=== PATIENT | male | born 1965 | race Caucasian/White ===

== ENCOUNTER 2017-05-07 18:58 | Emergency (ER) | payer MEDICARE, OTHER ==
[~2017-05-07] VITALS: Ht 177.8 cm; Wt 101.9 kg
[2017-05-07] MEDS ORDERED: ZIPRASIDONE 20 MG INJ IM ONE (19:10)
[2017-05-07] MEDS ORDERED: SODIUM CHLORIDE 0.9% 1,000 ML IV ONE (19:21)
[2017-05-07] MEDS ORDERED: SODIUM CHLORIDE FLUSH 10ML SYR IVF ONE (19:30)
[2017-05-07] MEDS ORDERED: ONDANSETRON 2MG/ML, 2ML IVPush ONE (19:30)
[2017-05-07] MEDS ORDERED: HYDROmorphone 1 MG/ML, 1ML IVPush PRN (19:30)
[2017-05-07 19:55] LABS: BASOPHILS # (AUTO) 0.01 x10^3/uL (0-0.1); BASOPHILS % (AUTO) 0 % (0-1); EOSINOPHILS % (AUTO) 1 % (1-7); LYMPHOCYTES % (AUTO) 13 % (22-44); MD NO; MEAN CORPUSCULAR HEMOGLOBIN 30.4 pg (27.5-34.5); MEAN CORPUSCULAR HGB CONC 33.8 g/dL (33.2-36.2); MEAN CORPUSCULAR VOLUME 89.9 fL (81-97); MONOCYTES # (AUTO) 0.76 x10^3/uL (0.2-0.8); MONOCYTES % (AUTO) 8 % (2-9); NEUTROPHILS % (AUTO) 78 % (42-75); PLATELET COUNT 179 x10^3/uL (130-400); RED BLOOD COUNT 5.56 x10^6/uL (4.38-5.82); RED CELL DISTRIBUTION WIDTH 13.2 % (9.4-14.8)
[2017-05-07 20:08] LABS: ALANINE AMINOTRANSFERASE 18 U/L (12-78); ALBUMIN 3.6 g/dL (3.4-5.0); ANION GAP 7 mmol/L (5-15); CALCIUM 8.6 mg/dL (8.5-10.1); CHLORIDE 109 mmol/L (98-107)
[2017-05-07 20:10] LABS: ALKALINE PHOSPHATASE 47 U/L (45-117); BILIRUBIN,TOTAL 0.9 mg/dL (0.2-1.0); TOTAL PROTEIN 7.3 g/dL (6.4-8.2)
[2017-05-07] MEDS ORDERED: ONDANSETRON 2MG/ML, 2ML ONE (21:35)
[2017-05-07] MEDS ORDERED: HYDROmorphone 2 MG/ML, 1ML ONE (21:40)
[2017-05-07 23:46] VITALS: BP 157/103
== END 2017-05-07 23:48 | disposition home or self-care (01) ==
LOC: ED 23:06
DX: K31.84 Gastroparesis (principal); I10 Essential (primary) hypertension; G43.909 Migraine, unspecified, not intractable, without status migrainosus; Z98.84 Bariatric surgery status
CPT/HCPCS: 36415; 74021; 80053; 83690; 85025; 96361; 96374; 99285; J1170; J2405; J7030

== ENCOUNTER 2019-04-30 10:36 | Emergency (ER) | payer MEDICARE, OTHER ==
[~2019-04-30] VITALS: Ht 177.8 cm; Wt 103.2 kg
--- NOTE | 2019-04-30 11:16 | NUR ---
PATIENT BROUGHT BACK FROM TRIAGE WITH CHIEF COMPLAINT OF MIDDLE ABDOMINAL PAIN WITH NAUSEA STARTING LAST NIGHT.
[2019-04-30] MEDS ORDERED: LISI5TAB7 PO (11:21)
[2019-04-30] MEDS ORDERED: ONDANSETRON 2MG/ML, 2ML IVPush ONE (11:30)
[2019-04-30] MEDS ORDERED: SODIUM CHLORIDE FLUSH 10ML SYR IVF ONE (11:30)
[2019-04-30] MEDS ORDERED: HYDROmorphone 2 MG/ML, 1ML IVPush ONE ×2 (11:30→13:30)
--- NOTE | 2019-04-30 11:30 | NUR ---
PT AWARE OF NEEDED URINE SAMPLE
[2019-04-30] MEDS ORDERED: HYDROmorphone 1 MG/ML, 1ML INJ ONE ×2 (11:37→13:11)
[2019-04-30] MEDS ORDERED: ONDANSETRON 2MG/ML, 2ML ONE (11:37)
[2019-04-30 11:44] LABS: BASOPHILS # (AUTO) 0.04 x10^3/uL (0-0.1); BASOPHILS % (AUTO) 1 % (0-1); EOSINOPHILS % (AUTO) 2 % (1-7); LYMPHOCYTES % (AUTO) 14 % (22-44); MD NO; MEAN CORPUSCULAR HEMOGLOBIN 29.9 pg (27.5-34.5); MEAN CORPUSCULAR HGB CONC 33.1 g/dL (33.2-36.2); MEAN CORPUSCULAR VOLUME 90.5 fL (81-97); MEAN PLATELET VOLUME 8.3 fL (7.4-10.4); MONOCYTES # (AUTO) 0.38 x10^3/uL (0.2-0.8); MONOCYTES % (AUTO) 7 % (2-9); NEUTROPHILS % (AUTO) 76 % (42-75); PLATELET COUNT 182 x10^3/uL (130-400); RED CELL DISTRIBUTION WIDTH 16.9 % (9.4-14.8)
[2019-04-30 11:56] LABS: ALANINE AMINOTRANSFERASE 33 U/L (12-78); ALBUMIN 3.5 g/dL (3.4-5.0); ANION GAP 7 mmol/L (5-15); CALCIUM 8.9 mg/dL (8.5-10.1); CHLORIDE 110 mmol/L (98-107); CREATININE 1.19 mg/dL (0.7-1.3)
[2019-04-30 11:59] LABS: ALKALINE PHOSPHATASE 72 U/L (45-117); BILIRUBIN,TOTAL 1.7 mg/dL (0.2-1.0); TOTAL PROTEIN 7.2 g/dL (6.4-8.2)
--- NOTE | 2019-04-30 12:15 | NUR ---
ERMD LAW AT BEDSIDE
--- NOTE | 2019-04-30 12:22 | NUR ---
PT TO IMAGING
[2019-04-30] MEDS ORDERED: OMNIPAQUE 350 MG/ML, 100ML BOTTLE ONE (12:31)
[2019-04-30 12:50] LABS: MICROSCOPIC AUTO
[2019-04-30 12:52] LABS: CULTURE INDICATED? NO
[2019-04-30 13:14] VITALS: BP 149/103
== END 2019-04-30 13:55 | disposition home or self-care (01) ==
LOC: ED 13:07
DX: R10.84 Generalized abdominal pain (principal); I10 Essential (primary) hypertension; Z90.49 Acquired absence of other specified parts of digestive tract; Z87.19 Personal history of other diseases of the digestive system
CPT/HCPCS: 36415; 74177; 80053; 81001; 83690; 85025; 96374; 96375; 96376; 99284; J1170; J2405; Q9967

== ENCOUNTER 2019-06-22 06:59 | Observation (INO) | payer MEDICARE, OTHER ==
[~2019-06-22] VITALS: Ht 177.8 cm; Wt 103.4 kg
[~2019-06-22 06:59] MED LIST: LISI5TAB7 PO
--- NOTE | 2019-06-22 07:46 | NUR ---
FIRST CONTACT WITH PT. PT STATES "MY LEFT LEG IS HURTING. I THINK THE MUSCLE FELL OFF MY STUMP." HX: SURGERY 11/2018. PT'S AOX4. RESPS EVEN AND UNLABORED. PT DENIES ANY OTHER SYMPTOMS. BP/SPO2 PLACED. CALL LIGHT WITHIN REACH. PT'S AT BEDSIDE.
[2019-06-22] MEDS ORDERED: KETAMINE 10 MG/ML, 20ML IV ONE (08:30)
--- NOTE | 2019-06-22 08:48 | NUR ---
PIV EST WITH NO COMPLICATIONS. PT TOLERATED WELL.
--- NOTE | 2019-06-22 08:55 | NUR ---
MEDICATION ORDERED FROM PHARMACY AT THIS TIME.
[2019-06-22] MEDS ORDERED: KETAMINE 10 MG/ML, 20ML ONE (09:02)
--- NOTE | 2019-06-22 09:07 | NUR ---
PT MEDICATED PER EMAR. PT TOLERATED WELL.
--- NOTE | 2019-06-22 09:21 | NUR ---
AFTER PT MEDICATED, PT'S BEHAVIOR WAS CHANGED. PT IS JUMPY AND SPEECH IS SLOW. EDMD NOTIFIED AND EDMD STATES "JUST MONITOR THE PT AND HE USES OPIOID A LOT." PT'S AOX4. VSS. AT BEDSIDE.
[2019-06-22 09:23] LABS: BASOPHILS # (AUTO) 0.02 x10^3/uL (0-0.1); BASOPHILS % (AUTO) 1 % (0-1); EOSINOPHILS # (AUTO) 0.17 x10^3/uL (0-0.4); EOSINOPHILS % (AUTO) 4 % (1-7); HCT (SEDRATE) 50.1 % (39.2-51.8); LYMPHOCYTES # (AUTO) 0.94 x10^3/uL (1-3.4); LYMPHOCYTES % (AUTO) 21 % (22-44); MD NO; MEAN CORPUSCULAR HEMOGLOBIN 30.3 pg (27.5-34.5); MEAN CORPUSCULAR HGB CONC 32.8 g/dL (33.2-36.2); MEAN CORPUSCULAR VOLUME 92.1 fL (81-97); MEAN PLATELET VOLUME 8.4 fL (7.4-10.4); MONOCYTES % (AUTO) 9 % (2-9); NEUTROPHILS % (AUTO) 66 % (42-75); PLATELET COUNT 199 x10^3/uL (130-400); RED BLOOD COUNT 5.45 x10^6/uL (4.38-5.82)
[2019-06-22] MEDS ORDERED: DIPHENHYDRAMINE 50 MG/ML, 1ML ONE (09:27)
[2019-06-22] MEDS ORDERED: DIPHENHYDRAMINE 50 MG/ML, 1ML IVPush ONE (09:30)
--- NOTE | 2019-06-22 09:30 | NUR ---
PT MEDICATED PER EMAR. PT TOLERATED WELL. PT'S AOX4. RESPS EVEN AND UNLABORED. PT STATES "I DON'T REMEMBER. WHAT DID I DO?" PT'S BEHAVIOR IS NORMAL. PT IS COOPERATIVE AND CALM.
[2019-06-22 09:33] LABS: ALANINE AMINOTRANSFERASE 28 U/L (12-78); ALBUMIN 3.2 g/dL (3.4-5.0); ANION GAP 4 mmol/L (5-15); CALCIUM 8.5 mg/dL (8.5-10.1); CHLORIDE 110 mmol/L (98-107); CREATININE 1.17 mg/dL (0.7-1.3)
[2019-06-22 09:35] LABS: ALKALINE PHOSPHATASE 76 U/L (45-117); BILIRUBIN,TOTAL 1.2 mg/dL (0.2-1.0); TOTAL PROTEIN 7.1 g/dL (6.4-8.2)
--- NOTE | 2019-06-22 10:47 | NUR ---
PT RESTING IN [facility]. RESPS EVEN AND UNLABORED. BP/SPO2 MONITORS IN PLACE. CALL LIGHT WITHIN REACH.
[2019-06-22] MEDS ORDERED: SUVO20TA PO (11:26)
[2019-06-22] MEDS ORDERED: DIVA-61 PO (11:27)
[2019-06-22] MEDS ORDERED: ATOR40TA78 PO (11:28)
[2019-06-22] MEDS ORDERED: TERB250T14 PO (11:28)
[2019-06-22] MEDS ORDERED: PANT40TA5 PO (11:29)
[2019-06-22] MEDS ORDERED: CABE0.5T PO (11:30)
[2019-06-22] MEDS ORDERED: GABAPENTIN 300 MG CAPSULE PO ONE (11:30)
[2019-06-22] MEDS ORDERED: HYDROmorphone 2 MG/ML, 1ML IVPush PRN (11:30)
[2019-06-22] MEDS ORDERED: VITAMIN D (11:32)
[2019-06-22] MEDS ORDERED: OXYC10TA6 PO (11:33)
[2019-06-22] MEDS ORDERED: GABA600T7 PO (11:34)
[2019-06-22] MEDS ORDERED: GABAPENTIN 300 MG CAPSULE ONE (12:09)
--- NOTE | 2019-06-22 12:15 | NUR ---
report given to jenise gibbs. all questions answered.
--- NOTE | 2019-06-22 12:18 | NUR ---
PT MEDICATED PER EMAR. PT TOLERATED WELL.
[2019-06-22] MEDS ORDERED: hydrALAzine 20 MG/ML, 1ML IVPush PRN (13:00)
[2019-06-22] MEDS ORDERED: ONDANSETRON 2MG/ML, 2ML IVPush PRN (13:00)
[2019-06-22] MEDS ORDERED: LABETALOL 5MG/ML, 20ML IVPush PRN (13:00)
--- NOTE | 2019-06-22 13:15 | NUR ---
pt resting in [facility]. pt's axo4. resps even and unlabored. all monitors in place. call light within reach.
[2019-06-22 14:03] VITALS: BP 170/104
[2019-06-22] MEDS: PANTOPROZOLE 40MG TABLET PO SCH (14:30)
[2019-06-22] MEDS: LISINOPRIL 20 MG TABLET PO SCH (14:30)
[2019-06-22] MEDS: ACETAMINOPHEN 325 MG TABLET PO SCH ×2 (14:30→22:46)
[2019-06-22] MEDS: CYCLOBENZAPRINE 10 MG TABLET PO SCH ×2 (14:31→22:48)
[2019-06-22] MEDS: SENNA/DOCUSATE TABLET PO SCH (14:31)
[2019-06-22] MEDS: KETOROLAC 30 MG/1 ML IV PRN (14:31)
[2019-06-22] MEDS: ENOXAPARIN 40 MG/0.4 ML SQ SCH (14:31)
[2019-06-22] MEDS: GABAPENTIN 100 MG CAPSULE PO SCH ×3 (14:36→21:11)
[2019-06-22] MEDS: DIVALPROEX 500 MG TABLET.DR PO SCH (14:36)
[2019-06-22] MEDS: SUVOREXANT 20 MG HOMEMEDPO SCH (14:36)
[2019-06-22] MEDS ORDERED: OMNIPAQUE 350 MG/ML, 100ML BOTTLE ONE (14:46)
[2019-06-22] MEDS: OXYcodone IR 5MG TABLET PO PRN ×2 (18:22→22:46)
[2019-06-22 19:11] VITALS: BP 162/94
[2019-06-22] MEDS: ATORVASTATIN 40 MG TABLET PO SCH (21:11)
[2019-06-23 00:32] VITALS: BP 156/88
[2019-06-23] MEDS: OXYcodone IR 5MG TABLET PO PRN ×4 (04:33→19:30)
[2019-06-23] MEDS: CYCLOBENZAPRINE 10 MG TABLET PO SCH ×2 (06:00→19:29)
[2019-06-23] MEDS: ACETAMINOPHEN 325 MG TABLET PO SCH ×3 (06:00→22:24)
[2019-06-23 06:12] LABS: BASOPHILS # (AUTO) 0.02 x10^3/uL (0-0.1); BASOPHILS % (AUTO) 1 % (0-1); EOSINOPHILS # (AUTO) 0.15 x10^3/uL (0-0.4); EOSINOPHILS % (AUTO) 4 % (1-7); LYMPHOCYTES # (AUTO) 1.11 x10^3/uL (1-3.4); LYMPHOCYTES % (AUTO) 29 % (22-44); MD NO; MEAN CORPUSCULAR HEMOGLOBIN 30.2 pg (27.5-34.5); MEAN CORPUSCULAR HGB CONC 33.3 g/dL (33.2-36.2); MEAN CORPUSCULAR VOLUME 90.8 fL (81-97); MONOCYTES # (AUTO) 0.37 x10^3/uL (0.2-0.8); MONOCYTES % (AUTO) 10 % (2-9); NEUTROPHILS # (AUTO) 2.14 x10^3/uL (1.8-6.8); NEUTROPHILS % (AUTO) 57 % (42-75); PLATELET COUNT 167 x10^3/uL (130-400); RED BLOOD COUNT 4.98 x10^6/uL (4.38-5.82); RED CELL DISTRIBUTION WIDTH 14.7 % (9.4-14.8)
[2019-06-23 06:21] LABS: ANION GAP 5 mmol/L (5-15); CALCIUM 8.4 mg/dL (8.5-10.1); CHLORIDE 112 mmol/L (98-107)
[2019-06-23 06:22] LABS: CREATININE 1.21 mg/dL (0.7-1.3)
[2019-06-23 06:48] VITALS: BP 139/92
[2019-06-23] MEDS: LISINOPRIL 20 MG TABLET PO SCH (08:34)
[2019-06-23] MEDS: PANTOPROZOLE 40MG TABLET PO SCH (08:34)
[2019-06-23] MEDS: GABAPENTIN 100 MG CAPSULE PO SCH (08:34)
[2019-06-23] MEDS: SUVOREXANT 20 MG HOMEMEDPO SCH (08:35)
[2019-06-23] MEDS: KETOROLAC 30 MG/1 ML IV PRN (08:35)
[2019-06-23] MEDS: SENNA/DOCUSATE TABLET PO SCH (08:35)
[2019-06-23] MEDS: DIVALPROEX 500 MG TABLET.DR PO SCH (08:35)
[2019-06-23 12:22] VITALS: BP 159/99
[2019-06-23] MEDS: ENOXAPARIN 40 MG/0.4 ML SQ SCH (15:06)
[2019-06-23] MEDS: GABAPENTIN 400 MG CAPSULE PO SCH ×2 (15:06→19:30)
[2019-06-23] MEDS ORDERED: OMNIPAQUE 350 MG/ML, 100ML BOTTLE ONE (17:27)
[2019-06-23] MEDS: HYDROmorphone 2 MG/ML, 1ML IVPush PRN ×2 (17:32→22:24)
[2019-06-23] MEDS: ATORVASTATIN 40 MG TABLET PO SCH (19:29)
[2019-06-23 20:10] VITALS: BP 157/94
[2019-06-24 00:09] VITALS: BP 130/77
[2019-06-24] MEDS: OXYcodone IR 5MG TABLET PO PRN ×3 (04:33→12:46)
[2019-06-24 07:34] VITALS: BP 132/77
[2019-06-24] MEDS: SUVOREXANT 20 MG HOMEMEDPO SCH (08:47)
[2019-06-24] MEDS: CYCLOBENZAPRINE 10 MG TABLET PO SCH (08:54)
[2019-06-24] MEDS: ACETAMINOPHEN 325 MG TABLET PO SCH (08:55)
[2019-06-24] MEDS: PANTOPROZOLE 40MG TABLET PO SCH (08:55)
[2019-06-24] MEDS: DIVALPROEX 500 MG TABLET.DR PO SCH (08:56)
[2019-06-24] MEDS: GABAPENTIN 400 MG CAPSULE PO SCH (08:56)
[2019-06-24] MEDS: SENNA/DOCUSATE TABLET PO SCH (08:56)
[2019-06-24] MEDS: LISINOPRIL 20 MG TABLET PO SCH (08:56)
[2019-06-24] MEDS: HYDROmorphone 2 MG/ML, 1ML IVPush PRN ×2 (10:06→13:17)
[2019-06-24] MEDS ORDERED: HYDR2TAB29 PO (10:45)
[2019-06-24] MEDS ORDERED: LISI-170 PO (10:45)
[2019-06-24] MEDS ORDERED: GABA-827 PO (10:45)
[2019-06-24] MEDS ORDERED: CYCL-259 PO (10:45)
[2019-06-24 13:11] VITALS: BP 129/70
== END 2019-06-24 15:10 | disposition home or self-care (01) ==
LOC: ED 09:10 → INTOOBSV 11:29 → EDIP 11:29 → 4EST 13:53 → DCLOUNGE 06-24 14:44
PROVIDERS: ADMIT Family Medicine; ATTEND Hospitalist
DX: G57.92 Unspecified mononeuropathy of left lower limb (principal); M54.5 Low back pain; G89.28 Other chronic postprocedural pain; I16.0 Hypertensive urgency; F43.10 Post-traumatic stress disorder, unspecified; G43.909 Migraine, unspecified, not intractable, without status migrainosus; K21.9 Gastro-esophageal reflux disease without esophagitis; E78.5 Hyperlipidemia, unspecified; I10 Essential (primary) hypertension; K31.84 Gastroparesis; Z95.0 Presence of cardiac pacemaker; Z89.512 Acquired absence of left leg below knee; Z79.899 Other long term (current) drug therapy
CPT/HCPCS: 36415; 72132; 73701; 80048; 80053; 85025; 85651; 86140; 93005; 96372; 96374; 96375; 96376; 97162; 99285; G0378; J1170; J1200; J1650; J1885; Q9967

== ENCOUNTER 2019-07-22 03:57 | Emergency (ER) | payer MEDICARE, OTHER ==
[~2019-07-22] VITALS: Ht 177.8 cm; Wt 105.0 kg
[~2019-07-22 03:57] MED LIST changes: +ATOR40TA78 PO; +CABE0.5T PO; +CYCL-259 PO; +DIVA-61 PO; +GABA-827 PO; +GABA600T7 PO; +HYDR2TAB29 PO; +LISI-170 PO; +OXYC10TA6 PO; +PANT40TA5 PO; +SUVO20TA PO; +TERB250T14 PO; +VITAMIN D
[2019-07-22 04:02] VITALS: BP 154/97
--- NOTE | 2019-07-22 04:32 | NUR ---
assessment made. chart up for MD to see.
--- NOTE | 2019-07-22 04:57 | NUR ---
patient states having hard time breathing since yesterday. denies any recent travels.
--- NOTE | 2019-07-22 05:30 | NUR ---
PA at bedside.
--- NOTE | 2019-07-22 05:45 | NUR ---
blood draw. EKG done.
--- NOTE | 2019-07-22 05:55 | NUR ---
X ray done. awaiting results.
[2019-07-22 06:08] LABS: RAPID INFLUENZA A Negative (Negative); RAPID INFLUENZA B Negative (Negative)
[2019-07-22 06:09] LABS: BASOPHILS # (AUTO) 0.02 x10^3/uL (0-0.1); BASOPHILS % (AUTO) 0 % (0-1); EOSINOPHILS # (AUTO) 0.17 x10^3/uL (0-0.4); EOSINOPHILS % (AUTO) 4 % (1-7); LYMPHOCYTES % (AUTO) 19 % (22-44); MD NO; MEAN CORPUSCULAR HEMOGLOBIN 30.6 pg (27.5-34.5); MEAN CORPUSCULAR VOLUME 89.9 fL (81-97); MEAN PLATELET VOLUME 8.8 fL (7.4-10.4); MONOCYTES % (AUTO) 10 % (2-9); NEUTROPHILS % (AUTO) 68 % (42-75); PLATELET COUNT 149 x10^3/uL (130-400); RED BLOOD COUNT 4.99 x10^6/uL (4.38-5.82); RED CELL DISTRIBUTION WIDTH 14.7 % (9.4-14.8)
[2019-07-22 06:12] LABS: ANION GAP 7 mmol/L (5-15); CALCIUM 8.2 mg/dL (8.5-10.1); CHLORIDE 109 mmol/L (98-107); CREATININE 1.04 mg/dL (0.7-1.3)
--- NOTE | 2019-07-22 08:48 | NUR ---
Patient given discharge instructions and they have confirmed that they understand the instructions. Patient ambulatory with steady gait.
== END 2019-07-22 08:49 | disposition home or self-care (01) ==
LOC: ED 08:36
DX: R06.00 Dyspnea, unspecified (principal); F41.1 Generalized anxiety disorder; J02.9 Acute pharyngitis, unspecified; I10 Essential (primary) hypertension; Z90.49 Acquired absence of other specified parts of digestive tract
CPT/HCPCS: 36415; 71045; 80048; 82040; 85025; 87081; 87400; 87880; 93005; 99285

== ENCOUNTER 2019-07-22 22:38 | Emergency (ER) | payer MEDICARE, OTHER ==
[~2019-07-22] VITALS: Ht 177.8 cm; Wt 104.9 kg
[2019-07-22 22:40] VITALS: BP 151/102
--- NOTE | 2019-07-22 22:50 | NUR ---
PT CAME IN CO OF ANXIETY. SAYS " I HAVENT SLEPT IN 48 HOURS. I HAVE NIGHTMARES." PT IS 100% DISABLED FOR PTSD.
[2019-07-22] MEDS ORDERED: LORazepam 1MG TABLET ONE (23:06)
[2019-07-22] MEDS ORDERED: LORazepam 1MG TABLET PO ONE (23:30)
--- NOTE | 2019-07-22 23:55 | NUR ---
Esau RN: Discharge instructions given. All questions and concerns addressed. Patient ambulatory with a steady gait. Belongings with patient.
== END 2019-07-22 23:56 | disposition home or self-care (01) ==
LOC: ED 23:40
DX: F41.1 Generalized anxiety disorder (principal); F43.12 Post-traumatic stress disorder, chronic; G89.29 Other chronic pain; Z90.49 Acquired absence of other specified parts of digestive tract
CPT/HCPCS: 99283